=== PATIENT | female | born 1945 | race Caucasian/White ===

== ENCOUNTER 2023-12-11 11:22 | Outpatient (CLI) | payer MEDICARE, BC ==
[~2023-12-11 11:22] MED LIST: AMLO5TAB PO; ASPI-1053 PO; FOLI0.4T14 PO; HYDR12.5 PO; HYDR200T73 PO; LEVO88TA2 PO; METH2.5T PO; NAPR-1144 PO; OMEP20TA23 PO; PRAV20TA4 PO; TRAM50TA2 PO
== END 2023-12-11 23:59 | disposition home or self-care (01) ==
LOC: MRI02 11:22
PROVIDERS: ATTEND Podiatrist Foot & Ankle Surgery
DX: M19.072 Primary osteoarthritis, left ankle and foot (principal); M25.872 Other specified joint disorders, left ankle and foot; M21.072 Valgus deformity, not elsewhere classified, left ankle; M79.672 Pain in left foot
CPT/HCPCS: 73718